=== PATIENT | male | born 1955 | race Hispanic/Latino ===

== ENCOUNTER 2017-10-28 20:37 | Emergency (ER) | payer SELFPAY ==
[~2017-10-28] VITALS: Ht 175.3 cm; Wt 104.8 kg
[2017-10-28 21:02] VITALS: BP 127/84
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
== END 2017-10-28 23:11 ==
LOC: ERH 20:37
DX: S16.1XXA Strain of muscle, fascia and tendon at neck level, initial encounter (principal); M54.5 Low back pain; V89.2XXA Person injured in unspecified motor-vehicle accident, traffic, initial encounter; Y92.410 Unspecified street and highway as the place of occurrence of the external cause